=== PATIENT | male | born 1970 | race Caucasian/White ===

== ENCOUNTER 2022-05-04 17:17 | Emergency (ER) | payer BC ==
[2022-05-04 17:47] LABS: HEMOGLOBIN 14.8 gm/dl (14.0-17.5); RED BLOOD COUNT 4.68 M/UL (4.20-5.50)
[2022-05-04 18:04] LABS: BUN/CREATININE RATIO 23 (0-10)
[2022-05-04] MEDS ORDERED: ENDOCET 5-3251 EACH PO (19:34)
[2022-05-04] MEDS ORDERED: ZOFRAN ODT 4 MG4 MG SL (19:34)
== END 2022-05-04 20:20 | disposition home or self-care (01) ==
LOC: ER1 17:17
PROVIDERS: Emergency Medicine
DX: N13.2 Hydronephrosis with renal and ureteral calculous obstruction (principal); E11.9 Type 2 diabetes mellitus without complications; E03.9 Hypothyroidism, unspecified
CPT/HCPCS: 80048; 81001; 85025; 96374; 96375; 99284; J1170; J1885; J2405